=== PATIENT | female | born 1985 | race Caucasian/White ===

== ENCOUNTER 2018-09-03 21:41 | Observation (INO) | payer BC ==
[2018-09-03 22:26] LABS: #Eosinphils 0.4 thou/uL (0.0-0.7); #Lymphocytes 2.8 thou/uL (1.20-3.40); #Monocytes 0.3 thou/uL (0.11-0.59); #Neutrophils 4.4 thou/uL (1.40-6.50); %Basophils 0.3 % (0.0-1.0); %Eosinophils 4.5 % (0.0-10.0); %Lymphocytes 35.4 % (21.0-51.0); %Neutrophils 55.7 % (42.0-75.0); Hemoglobin 14.6 g/dL (12.0-16.0); Mean Corpuscular Hemoglobin 30.9 pg (27.0-31.0); Mean Corpuscular Volume 90.9 fL (78.0-98.0); Mean Platelet Volume 7.1 fL (7.4-10.4); Platelet Count 282 thou/uL (130-400); RBC Distribution Width 11.8 % (11.5-14.5); Red Blood Cell (RBC) Count 4.71 mill/uL (4.20-5.40)
[2018-09-03 22:30] LABS: Bilirubin Negative (Negative); Blood, Urine Negative (Negative); Clarity Clear (Clear); Glucose, Urine (Dipstick) Normal (Negative); Leukocyte Negative Leu/uL (Negative); Nitrite Negative (Negative); Protein, Urine (Dipstick) Negative (Neg-Trace); Urobilinogen Normal mg/dL (Less than 2)
[2018-09-03 22:34] LABS: Pregnancy Test - Urine (BHCG) Negative (Negative); Pregu Control Background? CLEAR/WHITE (CLR/WHITE); Pregu Control Bar Appear? YES (CONTROL BAR); Specific Gravity 1.016 (1.002-1.036)
[2018-09-03 22:43] LABS: ALT (SGPT) 32 U/L (8-55); AST (SGOT) 21 U/L (5-34); Albumin 3.8 g/dL (3.5-5.0); Alkaline Phosphatase 69 U/L (40-150); Anion Gap 11 mmol/L (10-20); BUN (Urea Nitrogen) 8 mg/dL (7.0-18.7); Bilirubin, Total 0.4 mg/dL (0.2-1.2); Calc. Creatinine Clearance 0 mL/min (70-130); Calcium 9.2 mg/dL (7.8-10.44); Carbon Dioxide 23 mmol/L (22-29); Chloride 105 mmol/L (98-107); Estimated GFR-MDRD Greater than 90; Globulin 2.9 g/dL (2.4-3.5); Glucose 83 mg/dL (70-105); Lipase 8 U/L (8-78); Potassium 3.8 mmol/L (3.5-5.1); Protein, Total 6.7 g/dL (6.0-8.3); Sodium 135 mmol/L (136-145)
[2018-09-03] MEDS ORDERED: Morphine 4 MG/ML VIAL ONE (23:18)
[2018-09-03] MEDS ORDERED: Ketorolac Tromethamine 30 MG/ML VIAL ONE (23:18)
[2018-09-04 00:49] VITALS: BMI 55.3
[2018-09-04] MEDS ORDERED: Acetaminophen 325 MG TAB PO PRN ×2 (01:09→10:13)
[2018-09-04] MEDS ORDERED: Ondansetron ODT 4 MG TAB SL PRN (01:09)
[2018-09-04] MEDS ORDERED: Ondansetron PF 4 MG/2 ML Vial IVP PRN ×2 (01:09→10:17)
[2018-09-04] MEDS ORDERED: Sodium Chloride 0.9% 1,000 ML IV SCH ×2 (01:15→10:15)
[2018-09-04] MEDS: Morphine 4 MG/ML VIAL SLOW IVP PRN ×4 (03:15→15:49)
[2018-09-04] MEDS ORDERED: Senokot S 8.6-50 MG TAB PO PRN (10:13)
[2018-09-04] MEDS ORDERED: Morphine 2 MG/ML SYRINGE SLOW IVP PRN (10:16)
--- NOTE | 2018-09-04 12:33 | MRI ---
MRI ABDOMEN WITH AND WITHOUT IV CONTRAST: INDICATIONS: History of abdominal pain. COMPARISON: Prior CT abdomen and pelvis, dated 09/02/2018. CONTRAST: MultiHance 20 mL. FINDINGS: There is diffuse fatty infiltration of the liver. There is enlargement of the right hepatic lobe, to 24 cm. The spleen is enlarged, measuring 15 cm. There are numerous gallstones within the gallbladd er. No definite common bile duct stone is evident. The common bile duct measures 4.9 mm. No intrah epatic biliary ductal dilatation is noted. There are small subcentimeter cysts within the right kidney. Adrenal glands and left kidney are norm al appearing. No free fluid is evident. No abnormal region of enhancement is noted. A small amount of focal fatty sparing is near the gallbladder fossa. IMPRESSION: 1. Cholelithiasis. 2. Fatty liver. Hepatosplenomegaly. 3. Subcentimeter cysts within the right kidney. POS: [facility]
[2018-09-04 13:01] LABS: HBSAg Index 0.27 S/CO (0-0.99); Hep A IgM AB Non-Reactive (NonReactive); Hep A IgM S/CO 0.11 S/CO (0-0.79); Hep B Surf Ag Non-Reactive S/CO (NonReactive); Hep C IgG Ab Non-Reactive (NonReactive); Hepatitis B Core IgM Abs Non-Reactive (NonReactive)
[2018-09-04] MEDS ORDERED: Gadobenate Dimeglumine 529 MG/1 ML (20ML VIAL) ONE (13:42)
--- NOTE | 2018-09-04 14:29 | HP ---
PRIMARY CARE PHYSICIAN: Dr. Keene. CHIEF COMPLAINT: Abdominal pain. HISTORY OF PRESENT ILLNESS: Ms. Villafuerte is a 32-year-old female, who reported to the emergency room on 09/03/2018 for complaints of right lower quadrant pain and fever at home. Reports that she has had some nausea and some diarrhea and fever at home. She reports as high as 101. In the emergency room and subsequently in this overnight, she has been afebrile for us. She has not had any vomiting. She reports that she has had several episodes of diarrhea over the last several days. It is not watery, bloody or foul smelling. She denies doing anything abnormal in the last week. Denies eating anywhere different. She reports that she has a pretty consistent lifestyle, takes care of 3 children at home, has not been anywhere unusual. Denies any travel. Reports that prior to seeking care in the emergency room when the pain would hit, which she describes as a sharp, twisting pain in her right lower quadrant, she would take some Motrin, lay down and feel a little bit better, but pain has been persistent and she has been seen in the emergency room each day for the last several days with unremarkable findings. She had a pelvic as well, which was also negative in the emergency room for any acute findings. CT scan was also unremarkable. Labs have remained within normal limits and unhelpful to delineate the cause of her pain. She was given Toradol and morphine in the emergency room, which helped somewhat, and she was admitted for further management. REVIEW OF SYSTEMS: Fever, right lower quadrant pain, diarrhea, and nausea. She denied any vomiting. She also had a decreased appetite. All other systems are reviewed and are negative unless mentioned in the HPI. PAST MEDICAL HISTORY: Obesity patient, has a BMI of 55.3. PAST SURGICAL HISTORY: She has had 3 sections. PSYCHIATRIC HISTORY: None. SOCIAL HISTORY: She denies any alcohol or drug use. Uses tobacco. She smokes half a pack a day. She was at home with her family. Known allergies to Augmentin and coconut, and has been on clindamycin and Cipro this week. PHYSICAL EXAMINATION: VITAL SIGNS: Blood pressure 135/107, pulse is 97, respirations are 17, temperature is 98.0, and pO2 sats are 97% on room air. CONSTITUTIONAL: She is in no apparent distress. She is alert and oriented to person, place and time. HEENT: Head is atraumatic and normocephalic. Eyes, eyelids are normal to inspection. Pupils are equally round and reactive to light. ENT, mucous membranes are moist. Mouth exam is normal. NECK: Normal range of motion. Trachea is midline. RESPIRATORY: Chest movement is symmetrical. Chest expansion is normal. CARDIOVASCULAR: Regular heart rate and rhythm. Heart sounds are normal. ABDOMEN: She is tender to palpation to the right lower quadrant. Bowel sounds are heard. Exam is somewhat limited by body habitus. BACK: Normal inspection. Normal range of motion. No CVA tenderness. EXTREMITIES: Upper extremity, normal inspection, normal range of motion. Lower extremity, normal inspection, normal range of motion, pedal pulses. There is no edema noted. NEUROLOGIC: She is oriented to person, place, and time. Speech is normal. SKIN: Warm, dry, normal in color. PSYCHIATRIC: She has a normal affect. PLAN AND ASSESSMENT: 1. Abdominal pain with unknown etiology. Dr. Field in the emergency room had ordered an abdominal MRI as the CT scan was unremarkable and not helpful in delineating potential sources of her pain. I did have a long conversation with Dr. Broussard of Radiology about the best way to go about the MRI and specifically focusing on certain aspects of her abdomen. On her CT scan, he said that he can see her appendix and there are no signs of any inflammatory changes. She does have a large liver, has some gallstones, and he would like to proceed with an MRCP and then take a look as far down as I possibly can to help us delineate any possible pathology. She did have her urine tested, which was negative. Chemistry and liver enzymes are unremarkable. Glucose was 83. Creatinine of 0.72. She has no elevated white blood cell count, is currently 8. Hemoglobin, hematocrit, and platelet counts are all within normal limits. We will proceed with MRCP. I have added a hepatitis panel, which potentially could aid us in ruling out hepatitis as a cause with the diarrhea, fever, and nausea. We will also add some stool sample collection and send this off for culture. We will keep the patient n.p.o. for now with some IV fluids for hydration and give her bowel some rest. We might add a little Bentyl, some Zofran, pain medication, and reassess. It is possible we may have to get GI involved depending on what the MRI findings may be. Case will be discussed with Dr. Renee for any recommendations. 2. Deep venous thrombosis prophylaxis has been started. 3. Hospital course depend on clinical findings. Job ID: [id number]
[2018-09-04 15:28] VITALS: BP 105/64; TEMP 97.6
[2018-09-04] MEDS ORDERED: Famotidine 20 MG TAB PO SCH (21:00)
== END 2018-09-04 18:30 | disposition home or self-care (01) ==
LOC: ERS 21:41 → T4-A 22:36
PROVIDERS: ADMIT Hospitalist; ATTEND Hospitalist
DX: K80.20 Calculus of gallbladder without cholecystitis without obstruction (principal); K76.0 Fatty (change of) liver, not elsewhere classified; R16.2 Hepatomegaly with splenomegaly, not elsewhere classified; N28.1 Cyst of kidney, acquired; E66.9 Obesity, unspecified; F17.210 Nicotine dependence, cigarettes, uncomplicated; Z68.43 Body mass index [BMI] 50.0-59.9, adult; Z88.0 Allergy status to penicillin; Z88.1 Allergy status to other antibiotic agents; Z91.018 Allergy to other foods; Z79.2 Long term (current) use of antibiotics
CPT/HCPCS: 36415; 74183; 80053; 80074; 81003; 81025; 83690; 85025; 85652; 86140; 86850; 86900; 86901; 96361; 96374; 96375; 96376; A9577; G0378; J1885; J2270; J2405

== ENCOUNTER 2021-01-11 19:28 | Emergency (ER) | payer OTHER, BC ==
[2021-01-11] MEDS ORDERED: HYDROcodone/Acetaminophen 10/325 mg Tablet ONE (22:32)
== END 2021-01-11 23:16 | disposition home or self-care (01) ==
LOC: ERS 19:28
DX: S13.9XXA Sprain of joints and ligaments of unspecified parts of neck, initial encounter (principal); S09.90XA Unspecified injury of head, initial encounter; R55 Syncope and collapse; E66.9 Obesity, unspecified; F17.210 Nicotine dependence, cigarettes, uncomplicated; V43.52XA Car driver injured in collision with other type car in traffic accident, initial encounter
CPT/HCPCS: 70450; 71045; 72125; 93005

== ENCOUNTER 2023-09-08 16:38 | Emergency (ER) | payer BC ==
[2023-09-08] MEDS ORDERED: HYDROcodone/Acetaminophen 5/325 mg Tablet ONE (17:53)
[2023-09-08] MEDS ORDERED: Ondansetron PF 4 MG/2 ML Vial ONE (18:00)
[2023-09-08 18:35] LABS: #Basophils 0.03 10x3/uL (0.0-0.2); %Basophils 0.3 % (0.0-1.0); %Eosinophils 1.5 % (0.0-10.0); %Lymphocytes 23.2 % (21.0-51.0); %Monocytes 3.5 % (0.0-10.0); %Neutrophils 71.1 % (42.0-75.0); Hematocrit 38.1 % (36.0-47.0); Hemoglobin 13.4 g/dL (12.0-16.0); Mean Corpuscular HGB CONC 35.2 g/dL (32.0-36.0); Mean Corpuscular Hemoglobin 30.9 pg (27.0-31.0); Mean Corpuscular Volume 87.8 fL (78.0-98.0); Mean Platelet Volume 9.7 fL (7.4-10.4); Platelet Count 237 10x3/uL (130-400); RBC Distribution Width 13.1 % (11.5-14.5); Red Blood Cell (RBC) Count 4.34 mill/uL (4.20-5.40)
[2023-09-08 18:45] LABS: BHCG - Serum Negative (NEGATIVE); Pregs Control Background? CLEAR/WHITE (CLR/WHITE); Pregs Control Bar Appear? YES (CONTROL BAR)
[2023-09-08 18:51] LABS: ALT (SGPT) 45 U/L (8-55); AST (SGOT) 25 U/L (5-34); Albumin 3.5 g/dL (3.5-5.0); Alkaline Phosphatase 69 U/L (40-110); Anion Gap 12 mmol/L (10-20); BUN (Urea Nitrogen) 6 mg/dL (7.0-18.7); Bilirubin, Total 0.4 mg/dL (0.2-1.2); Calc. Creatinine Clearance 0 mL/min (70-130); Calcium 8.9 mg/dL (7.8-10.44); Carbon Dioxide 21 mmol/L (22-29); Chloride 109 mmol/L (98-107); Estimated GFR 110; Globulin 3.1 g/dL (2.4-3.5); Glucose 151 mg/dL (70-105); Lipase 9 U/L (8-78); Potassium 3.6 mmol/L (3.5-5.1); Protein, Total 6.6 g/dL (6.0-8.3); Sodium 138 mmol/L (136-145)
[2023-09-08 19:43] LABS: Bilirubin Negative (Negative); Blood, Urine Negative (Negative); CAUTI Indications for Culture Pelvic or flank pain; Clarity Clear (Clear); Glucose, Urine (Dipstick) Normal (Negative); Ketone, Urine Negative (Negative); Leukocyte Negative Leu/uL (Negative); Nitrite Negative (Negative); Protein, Urine (Dipstick) 10 mg/dL (Neg-Trace); RBC/HPF 0-3 HPF (0-3); Specific Gravity, Urine 1.018 (1.002-1.036); Urobilinogen Normal mg/dL (Less than 2); WBC/HPF 0-3 HPF (0-3); pH, Urine 6.5 (5.0-9.0)
[2023-09-08 19:45] LABS: Bacteria/HPF 1+ HPF (None Seen); Urine Culture Reflex No No
[2023-09-08] MEDS ORDERED: Metoclopramide HCl 10 MG (2 mL) VIAL ONE (19:51)
== END 2023-09-08 23:17 | disposition home or self-care (01) ==
LOC: ERS 16:38
DX: R10.9 Unspecified abdominal pain (principal); G89.29 Other chronic pain; F17.210 Nicotine dependence, cigarettes, uncomplicated
CPT/HCPCS: 36415; 80053; 81001; 82274; 83690; 84703; 85025; 96374; 96375; J2405; J2765

== ENCOUNTER 2023-12-25 19:48 | Emergency (ER) | payer BC ==
[2023-12-25 20:21] LABS: Pregnancy Test - Urine (BHCG) POSITIVE (Negative); Pregu Control Background? CLEAR/WHITE (CLR/WHITE); Pregu Control Bar Appear? YES (CONTROL BAR); Specific Gravity 1.002 (1.002-1.036)
== END 2023-12-25 21:19 | disposition home or self-care (01) ==
LOC: ERS 19:48
DX: O99.611 Diseases of the digestive system complicating pregnancy, first trimester (principal); K02.9 Dental caries, unspecified; O99.331 Smoking (tobacco) complicating pregnancy, first trimester; F17.210 Nicotine dependence, cigarettes, uncomplicated; Z3A.01 Less than 8 weeks gestation of pregnancy
CPT/HCPCS: 81025; 99283